=== PATIENT | female | born 1995 | race Caucasian/White ===

== ENCOUNTER 2017-03-16 20:20 | Emergency (ER) | payer OTHER ==
[~2017-03-16] VITALS: Ht 165.1 cm; Wt 101.1 kg
[~2017-03-16 20:20] MED LIST: CIPRO500 MG PO; LEXAPRO20 MG PO; MOTRIN800 MG PO; NAPROSYN500 MG PO; SPRINTEC1 EACH PO; TRAMADOL HCL50 MG PO
[2017-03-16] MEDS ORDERED: SKELAXIN800 MG PO (22:42)
[2017-03-16] MEDS ORDERED: MOTRIN600 MG PO (22:42)
[2017-03-16] MEDS ORDERED: TRAMADOL HCL50 MG PO (22:42)
[2017-03-16 23:25] VITALS: BP 123/77
== END 2017-03-16 23:27 | disposition home or self-care (01) ==
LOC: EME 20:20 → TRA 20:20
DX: S46.912A Strain of unspecified muscle, fascia and tendon at shoulder and upper arm level, left arm, initial encounter (principal); R51 Headache; V43.52XA Car driver injured in collision with other type car in traffic accident, initial encounter; Y92.411 Interstate highway as the place of occurrence of the external cause; F41.9 Anxiety disorder, unspecified; F32.9 Major depressive disorder, single episode, unspecified; F17.200 Nicotine dependence, unspecified, uncomplicated; Z88.1 Allergy status to other antibiotic agents; Z88.8 Allergy status to other drugs, medicaments and biological substances
CPT/HCPCS: 70450; 72125; 73030; 99281; 99285